=== PATIENT | female | born 1955 | race Caucasian/White ===

== ENCOUNTER 2019-08-15 10:57 | Emergency (ER) | payer BC, MEDICARE ==
[2019-08-15] MEDS ORDERED: Sodium Chloride 0.9% 1,000 ML IV ONE ×2 (11:25→12:02)
[2019-08-15] MEDS ORDERED: Norepinephrine 4 MG/4 ML SDV ONE (11:53)
[2019-08-15 11:59] LABS: ANION GAP 12.2; CHLORIDE,CL 104 mmol/L (101-111); SODIUM,NA 138 mmol/L (135-145)
[2019-08-15] MEDS ORDERED: Norepinephrine 4 MG in Dextrose 5% in Water 246 ML IV SCH ×2 (12:00)
[2019-08-15] MEDS ORDERED: Lactated Ringers 1,000 ML IV ONE (13:19)
[2019-08-15] MEDS ORDERED: Potassium Chloride 10 MEQ Tab.ER PO ONE (13:22)
[2019-08-15] MEDS ORDERED: Piperacillin/Tazobactam 3.375 GM in Sodium Chloride 0.9% 100 ML IV ONE (13:23)
--- NOTE | 2019-08-15 18:02 | EDM.PDOC ---
ED HPI GENERAL MEDICAL PROBLEM - General Chief Complaint: Neuro Symptoms/Deficits Stated Complaint: WEAK/DISORIENTATED Time Seen by Provider: 08/15/19 11:15 Source of Information: Reports: Patient, RN, Other (Patient friend.) - History of Present Illness INITIAL COMMENTS - FREE TEXT/NARRATIVE: 63 years old female who presents to the ER with her friend with complaints of lethargic and confused. She was coherent during this interview but drowsy. Patient's friend's reports they were in [place] to spend time together. Patient's friend states they were in the hotel for two days, eating food,watching movies, smoke some medical marijuana, drink wine and patient took her Xanax in the morning for anxiety. Patient was noted to be slumped into the ice skating coach the evening prior to this visit and her friend thought she was tried. She states they left the hotel a couple of hours ago and patient could not walk. Patient is reported to have been incoherent. Patient's friend states she was told patient has had a heart attack. Patient has a history of HTN but she took no medication prior to this visit. Patient denies any illegal drug use. She denies any SOB, head trauma, injury or fall. GCS 14 Onset Date: 08/14/19 Onset Time: 21:00 - Related Data Allergies Allergy/AdvReac Type Severity Reaction Status Date / Time No Known Allergies Allergy Verified 08/15/19 11:11 Home Meds: Home Meds . [Unable to Verify Home Med List] 08/15/19 [History] Past Medical History Cardiovascular History: Reports: High Cholesterol, Hypertension, [place] Musculoskeletal History: Reports: Other (See Below) Other Musculoskeletal History: broken back Social & Family History - Caffeine Use Caffeine Use: Reports: Soda - Recreational Drug Use Recreational Drug Use: No ED ROS GENERAL - Review of Systems Review Of Systems: Comprehensive ROS is negative, except as noted in HPI. ED EXAM, NEURO - Physical Exam Exam: See Below Exam Limited By: No Limitations General Appearance: Alert, Lethargic, Obese Eye Exam: Bilateral Eye: Normal Inspection, PERRL Ears: Normal External Exam, Normal Canal, Hearing Grossly Normal, Normal TMs Nose: Normal Inspection, Normal Mucosa, No Blood Throat/Mouth: Normal Inspection, Normal Lips, Normal Teeth, Normal Gums, Normal Oropharynx, Normal Voice, No Airway Compromise Head Exam: Atraumatic, Normocephalic Neck: Normal Inspection, Supple, Non-Tender, Full Range of Motion Respiratory/Chest: No Respiratory Distress, Lungs Clear, Normal Breath Sounds, No Accessory Muscle Use, Chest Non-Tender Cardiovascular: Normal Peripheral Pulses, Regular Rate, Rhythm, No Edema, No Gallop, No JVD, No Murmur, No Rub GI/Abdominal: Normal Bowel Sounds, Soft, Non-Tender, No Organomegaly, No Distention, No Abnormal Bruit, No Mass (Female) Exam: Deferred Rectal (Female) Exam: Deferred Neurological: Alert, Oriented x 3 Back Exam: Normal Inspection Extremities: Normal Inspection, Non-Tender, No Pedal Edema, Normal Capillary Refill Skin Exam: Warm, Intact Course - Vital Signs Last Recorded V/S: Last Vital Signs Temp 97.6 F 08/15/19 11:11 Pulse 70 08/15/19 11:11 Resp 18 08/15/19 11:11 BP 98/55 L 08/15/19 11:11 Pulse Ox 96 08/15/19 11:11 - Orders/Labs/Meds Labs: Laboratory Tests 08/15/19 08/15/19 08/15/19 Range/Units 11:29 11:29 11:29 WBC 8.7 (5.0-10.0) 10^3/uL RBC 4.35 (4.2-5.4) 10^6/uL Hgb 13.4 (12.0-16.0) g/dL Hct 38.9 (37.0-47.0) % MCV 89.4 (80-100) fL MCH 30.8 (27.0-34.0) pg MCHC 34.4 (33.0-35.0) g/dL Plt Count 192 (150-450) 10^3/uL Neut % (Auto) 61.1 (42.2-75.2) % Lymph % (Auto) 30.8 (20.5-50.1) % [place] % (Auto) 4.9 (2-8) % Eos % (Auto) 3.1 H (1.0-3.0) % Baso % (Auto) 0.1 (0.0-1.0) % Sodium 138 (135-145) mmol/L Potassium 3.2 L (3.6-5.0) mmol/L Chloride 104 (101-111) mmol/L Carbon Dioxide 25.0 (21.0-31.0) mmol/L Anion Gap 12.2 BUN 20 H (7-18) mg/dL Creatinine 0.8 (0.6-1.3) mg/dL Est Cr Clr Drug Dosing 51.70 mL/min Estimated GFR (MDRD) > 60 BUN/Creatinine Ratio 25.00 Glucose 102 (74-105) mg/dL Lactic Acid 0.8 (0.5-2.0) mmol/L Calcium 8.9 (8.4-10.2) mg/dl Magnesium 1.8 (1.8-2.5) mg/dL Total Bilirubin 0.3 (0.2-1.0) mg/dL AST 26 (10-42) IU/L ALT 29 (10-60) IU/L Alkaline Phosphatase 91 (42-121) IU/L Ammonia (11-35) umol/L Troponin I < 0.02 (0.00-0.02) ng/ml Total Protein 7.2 (6.7-8.2) g/dl Albumin 3.8 (3.2-5.5) g/dl Globulin 3.4 Albumin/Globulin Ratio 1.12 Urine Color (YELLOW) Urine Appearance (CLEAR) Urine pH (5.0-9.0) Ur Specific [place] (1.005-1.030) Urine Protein (NEGATIVE) Urine Glucose (UA) (NEGATIVE) Urine Ketones (NEGATIVE) Urine Occult Blood (NEGATIVE) Urine Nitrite (NEGATIVE) Urine Bilirubin (NEGATIVE) Urine Urobilinogen (0.2-1.0) mg/dL Ur Leukocyte Esterase (NEGATIVE) Urine Opiates Screen (NEGATIVE) Ur Oxycodone Screen (NEGATIVE) Urine Methadone Screen (NEGATIVE) Ur Barbiturates Screen (NEGATIVE) U Tricyclic Antidepress (NEGATIVE) Ur Phencyclidine Scrn (NEGATIVE) Ur Amphetamine Screen (NEGATIVE) U Methamphetamines Scrn (NEGATIVE) Urine MDMA Screen (NEGATIVE) U Benzodiazepines Scrn (NEGATIVE) Urine Cocaine Screen (NEGATIVE) U Marijuana (THC) Screen (NEGATIVE) 08/15/19 08/15/19 08/15/19 Range/Units 12:00 12:00 12:23 WBC (5.0-10.0) 10^3/uL RBC (4.2-5.4) 10^6/uL Hgb (12.0-16.0) g/dL Hct (37.0-47.0) % MCV (80-100) fL MCH (27.0-34.0) pg MCHC (33.0-35.0) g/dL Plt Count (150-450) 10^3/uL Neut % (Auto) (42.2-75.2) % Lymph % (Auto) (20.5-50.1) % [place] % (Auto) (2-8) % Eos % (Auto) (1.0-3.0) % Baso % (Auto) (0.0-1.0) % Sodium (135-145) mmol/L Potassium (3.6-5.0) mmol/L Chloride (101-111) mmol/L Carbon Dioxide (21.0-31.0) mmol/L Anion Gap BUN (7-18) mg/dL Creatinine (0.6-1.3) mg/dL Est Cr Clr Drug Dosing mL/min Estimated GFR (MDRD) BUN/Creatinine Ratio Glucose (74-105) mg/dL Lactic Acid (0.5-2.0) mmol/L Calcium (8.4-10.2) mg/dl Magnesium (1.8-2.5) mg/dL Total Bilirubin (0.2-1.0) mg/dL AST (10-42) IU/L ALT (10-60) IU/L Alkaline Phosphatase (42-121) IU/L Ammonia 26 (11-35) umol/L Troponin I (0.00-0.02) ng/ml Total Protein (6.7-8.2) g/dl Albumin (3.2-5.5) g/dl Globulin Albumin/Globulin Ratio Urine Color Yellow (YELLOW) Urine Appearance Clear (CLEAR) Urine pH 6.0 (5.0-9.0) Ur Specific [place] 1.025 (1.005-1.030) Urine Protein Negative (NEGATIVE) Urine Glucose (UA) Negative (NEGATIVE) Urine Ketones Negative (NEGATIVE) Urine Occult Blood Negative (NEGATIVE) Urine Nitrite Negative (NEGATIVE) Urine Bilirubin Negative (NEGATIVE) Urine Urobilinogen 0.2 (0.2-1.0) mg/dL Ur Leukocyte Esterase Negative (NEGATIVE) Urine Opiates Screen Negative (NEGATIVE) Ur Oxycodone Screen Negative (NEGATIVE) Urine Methadone Screen Negative (NEGATIVE) Ur Barbiturates Screen Negative (NEGATIVE) U Tricyclic Antidepress Positive H (NEGATIVE) Ur Phencyclidine Scrn Negative (NEGATIVE) Ur Amphetamine Screen Negative (NEGATIVE) U Methamphetamines Scrn Negative (NEGATIVE) Urine MDMA Screen Negative (NEGATIVE) U Benzodiazepines Scrn Positive H (NEGATIVE) Urine Cocaine Screen Negative (NEGATIVE) U Marijuana (THC) Screen Positive H (NEGATIVE) Meds: Medications Discontinued Medications Generic Name Dose Route Start Last Admin Trade Name Ivon PRN Reason Stop Dose Admin Sodium Chloride 1,000 mls @ 999 mls/hr 08/15/19 11:25 08/15/19 11:27 Normal Saline IV 08/15/19 12:25 999 mls/hr .BOLUS ONE Administration Norepinephrine Bitartrate 4 mg 250 mls @ 7.5 mls/hr 08/15/19 12:00 08/15/19 12:32 / Dextrose/Water IV 2 mcg/min TITRATE ALICE 7.5 mls/hr Titration Protocol 2 MCG/MIN Sodium Chloride 1,000 mls @ 999 mls/hr 08/15/19 12:02 08/15/19 12:06 Normal Saline IV 08/15/19 13:02 999 mls/hr .BOLUS ONE Administration Lactated Ringer's 1,000 mls @ 999 mls/hr 08/15/19 13:19 08/15/19 13:21 Ringers, Lactated IV 08/15/19 14:19 999 mls/hr .BOLUS ONE Administration Piperacillin Sod/Tazobactam 100 mls @ 200 mls/hr 08/15/19 13:23 08/15/19 13: 31 Sod 3.375 gm/ Sodium Chloride IV 08/15/19 13:52 200 mls/hr ONETIME ONE Administration Vancomycin HCl 1 gm/ Sodium 250 mls @ 167 mls/hr 08/15/19 13:24 08/15/19 13: 31 Chloride IV 08/15/19 14:53 167 mls/hr ONETIME ONE Administration Norepinephrine Bitartrate Confirm 08/15/19 11:53 08/15/19 11:59 Levophed Administered 08/15/19 11:54 Not Given Dose 4 mg .ROUTE .STK-MED ONE Potassium Chloride 40 meq 08/15/19 13:22 08/15/19 13:31 Klor-Con 10 PO 08/15/19 13:23 40 meq ONETIME ONE Administration - Radiology Interpretation Free Text/Narrative:: PROCEDURE INFORMATION: Exam: XR Chest, 1 View Exam date and time: 08/15/2019 12:18 PM Age: 63 years old Clinical indication: Other: Low blood pressure; Additional info: Altered mental status, low blood pressure TECHNIQUE: Imaging protocol: XR of the chest Views: 1 view. COMPARISON: No relevant prior studies available. FINDINGS: Lungs: There is borderline vascular congestion. There is peribronchial cuffing and hazy right lung density likely accentuated due to slight patient rotation. There are linear left lower lobe densities which could represent atelectasis or scar. Pleural space: Unremarkable. No pleural effusion. No pneumothorax. Heart/Mediastinum: Heart size is within normal limits for technique. Bones/joints: Unremarkable. IMPRESSION: Mild bronchial wall thickening and borderline vascular congestion with left basilar atelectasis or scar but no acute chest disease. Thank you for allowing us to participate in the care of your patient. PROCEDURE INFORMATION: Exam: CT Head Without Contrast Exam date and time: 08/15/2019 12:29 PM Age: 63 years old Clinical indication: Altered mental status/memory loss; Confusion or disorientation TECHNIQUE: Imaging protocol: Computed tomography of the head without contrast. Radiation optimization: All CT scans at this facility use at least one of these dose optimization techniques: automated exposure control; mA and/or kV adjustment per patient size (includes targeted exams where dose is matched to clinical indication); or iterative reconstruction. COMPARISON: No relevant prior studies available. FINDINGS: Brain: Normal. No hemorrhage. Unremarkable white matter. No mass effect. Ventricles: Normal. No ventriculomegaly. Bones/joints: Unremarkable. No acute fracture. Sinuses: Visualized sinuses are unremarkable. No fluid levels. Mastoid air cells: Visualized mastoid air cells are well aerated. Soft tissues: Unremarkable. IMPRESSION: No acute intracranial abnormality. Thank you for allowing us to participate in the care of your patient - Re-Assessments/Exams Free Text/Narrative Re-Assessment/Exam: Upon arrival, patient's blood pressure was noted to be in the 90's/50. She was lethargic and confused. NS @ 1000 ml/hr was initiated. Upon the expeller worker's interview, patient was responding to question appropriately but could not keep her eyes open for over a minute at a time. GCS was 14. BP did not improve with IV fluids, it dropped into the 40's. Levophed and another liter of NS were initiated with good respond. Reviewed EKG, labs, chest, CT scan and UDS results with patient and friend at bedside. Oral potassium 40 mg administered for a K of 3.2. Consulted with Dr. Pacheco ( Hospitalist freedom of information officer) who was willing to admit patient if she is weaned off Levophed. Patient's BP was noted to improve but she was very weak. Call [facility] Call case and discuss with Dr. Landa who graciously accepted patient for transfer and recommended Vanco 1 g and Zosyn 3.375 mg be initiated. Departure - Departure Time of Disposition: 13:20 Disposition: DC/Tfer to Acute Hospital 02 Condition: Poor Clinical Impression: Hypotension Qualifiers: Hypotension type: unspecified hypotension type Qualified Code(s): I95.9 - Hypotension, unspecified - Discharge Information Referrals: PCP,Unobtain [Primary Care Provider] - Forms: ED Department Discharge, Interfacility Transfer [facility] Sepsis Event Note - Evaluation Sepsis Screening Result: No Definite Risk - Focused Exam Date Exam was Performed: 08/18/19 Time Exam was Performed: 17:59
== END 2019-08-15 14:15 ==
LOC: DL.ED 10:57
DX: I95.9 Hypotension, unspecified (principal); I10 Essential (primary) hypertension; E78.00 Pure hypercholesterolemia, unspecified; I25.2 Old myocardial infarction
CPT/HCPCS: 36415; 51702; 70450; 71045; 80053; 80305; 81003; 82140; 83605; 83735; 84484; 85025; 93005; 96361; 96365; 96366; 96368; 99285; A9270; J2543; J3370; J7030; J7050; J7060; J7120